=== PATIENT | female | born 1995 | race Two or more races ===

== ENCOUNTER 2024-06-09 10:09 | Inpatient (IN) | payer MEDICAID, SELFPAY ==
[2024-06-09] VITALS (31 sets, daily range): BP systolic 0–133; BP diastolic 0–88; PULSE 54–101; RESP 14–19; TEMP 36.6–36.9; O2SAT 96–100; BMI 37.9
[2024-06-09 10:59] LABS: Basophils % (Auto) 0 % (0-2.5); Eosinophils # (Auto) 0.1 Thou/mm3 (0.0-0.5); Eosinophils % (Auto) 1 % (0-10); Hematocrit 32.2 % (36.0-46.0); Hemoglobin 11.3 g/dL (12.0-16.0); Immature Granulocytes % (Auto) 1 % (0-0); Immature Granulocytes Auto 0.05 Thou/mm3 (0.00-0.00); Lymphocytes # (Auto) 1.3 Thou/mm3 (1.0-4.8); Lymphocytes % (Auto) 18 % (10-50); Mean Corpuscular HGB Conc 35.1 g/dl (31.0-37.0); Mean Corpuscular Volume 80 fL (80-100); Monocytes # (Auto) 0.4 Thou/mm3 (0.0-0.8); Monocytes % (Auto) 6 % (0-12); Neutrophils # (Auto) 5.2 Thou/mm3 (1.8-7.7); Neutrophils % (Auto) 74 % (37-80); Nucleated Red Blood Cell % 0 /100 WBC (0); Platelet Count 218 Thou/mm3 (140-440); RDW Standard Deviation 37.4 fL (36.4-46.3); Red Blood Count 4.04 Miln/mm3 (4.00-5.20)
[2024-06-09 11:32] LABS: Syphilis Nonreactive (Nonreactive)
[2024-06-09] MEDS: ceFAZolin/D5W 2 GM IV 2 GM/100 ML BAG IV (12:15)
[2024-06-09] MEDS: CITRIC ACID/SODIUM CITR 15 ML UDC (BICITRA) 30 ML PO (12:15)
[2024-06-09] MEDS: FAMOTIDINE INJ 10 MG/ML VIAL 2 ML 20 MG IV (12:15)
--- NOTE | 2024-06-09 12:47 | PD.LDHP ---
Documentation for date of: 06/09/24 OB Labor/Induct. HPI History of Present Illness : 3 Para: 2 Term pregnancies: 2 pregnancies: 0 Living children: 2 History of Abortions: Spontaneous and Elective: 0 History of sections: No History of : No Date of last menstrual period: 09/10/23 EMILY: 06/16/24 Gestational age based on last menstrual period: 41 History of present illness: 28-year-old -0-0-2 at 39 weeks, EMILY 06/16/2024 presents for scheduled repeat low-transverse section. Patient denies any contractions, leakage of fluid or vaginal bleeding and reports good movements. She has a history of 1 previous vaginal delivery followed by 1 section. The rest of her records were reviewed as scanned in History of Present Adequate Care: Yes Labs Labs: Negative: HIV, Chlamydia and Gonorrhea Review of Systems Review of Systems Systems Reviewed: All systems reviewed, normal except as documented Past Medical History Surgical History SURGICAL: Negative Section Meds Home Medications and Allergies Home Medications ?Medication ?Instructions ?Recorded ?Confirmed ?Type vitamin-ferrous sulfate 1 tab PO 1XD 06/09/24 06/09/24 History 27 mg iron-folic acid 0.8 mg tablet Allergies Allergy/AdvReac Type Severity Reaction Status Date / Time No Known Allergies Allergy Verified 06/09/24 10:58 OB Exam Physical Exam Vital signs: Temp Pulse Resp BP Pulse Ox 98.4 F 70 18 119/75 100 06/09/24 10:49 06/09/24 10:49 06/09/24 10:49 06/09/24 10:49 06/09/24 12:32 Constitutional Constitutional: no acute distress Routine HEENT Exam Head: Present normocephalic and atraumatic Eye: Present EOMI and PERRL ENT: Present mucous membranes moist Routine Neck Exam Neck: Present supple and trachea midline Routine Cardiovascular Exam Cardiovascular: Present RRR Routine Abdominal Exam Abdominal: Present soft and normoactive bowel sounds Detailed Labor and Delivery Exam Dilation (cm): 0 Baseline heart rate: 145 monitor accelerations: 15x15 monitor decelerations: None Routine Extremities Exam Extremities: Present full ROM Routine Skin Exam Skin: Present intact, dry and warm Routine Neurological Exam Neurological: Present alert, oriented X3 and CN II-XII intact Routine Psychiatric Exam Psychiatric: Present normal affect and normal thought process OB Results Labs 06/09/24 10:40 Labs: Short CBC 06/09/24 Range/Units 10:40 WBC 7.0 (3.6-11.0) Thou/mm3 Hgb 11.3 L (12.0-16.0) g/dL Hct 32.2 L (36.0-46.0) % Plt Count 218 (140-440) Thou/mm3 OB Assessment & Plan Assessment and Plan (1) delivery delivered: Status: Acute (2) Previous delivery affecting : Status: Acute Assessment and plan: Admit to inpatient status for repeat low transverse IV access, CBC, type and screen, LR at 125, RPR, COVID-19 test GBS negative Ancef 2 g prior to surgery start Linares catheter to drainage SCDs for DVT prophylaxis Anesthesia to preop for spinal anesthesia Scheduled for surgery.
--- NOTE | 2024-06-09 12:50 | ESOP_ITS ---
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 Identity was confirmed by double identifiers and she was placed on the operating table. Spinal anesthesia was administered and she was positioned in the supine position. The abdomen and perineum were prepped in the usual sterile fashion and a Linares catheter was placed to continuous drainage. Sterile drapes were applied. The incision site was tested for adequacy of anesthesia. A Pfannenstiel skin incision was made with a scalpel and carried to the subcutaneous fat up to the rectus fascia. The rectus fascia was incised on either side of the midline and the incisions were extended bilaterally. The fascia was gently dissected off the ventral surface of the rectus muscle both superiorly and inferiorly. The rectus bellies were gently in the midline and the peritoneum was identified and entered bluntly using the surgeon's finger. The peritoneal opening was now stretched to create an adequate opening for access to the uterus. Julio O-ring retractor was placed for adequate visualization. The anterior surface of the uterus was palpated. About 2 cm above the previous hysterotomy scar multiple areas of vascularity that were consistent in appearance with placental vessels were noted. The anterior surface of the uterus was palpated and the placenta was noted to be anterior. Also the right sub-Farnell/cornual portion of the uterus was connected to a dense band of adhesion that connected the uterus to the anterior abdominal wall. The bladder reflection was identified and a Luis M Chen low transverse uterine incision was made in the lower uterine segment taking care to avoid the bladder. Uterine entry was accomplished bluntly and the opening was stretched to create adequate room. The amniotic membranes were now ruptured and clear amniotic fluid was released. The fetus was noted to be in the vertex position. The head was gently elevated out of the maternal pelvis and the rest of the shoulders and body were delivered by gentle fundal pressure. Umbilical cord was doubly clamped, divided and the was handed over to the waiting team. Cord gas samples were obtained. The placenta was delivered by gentle traction on the umbilical cord. The interior of the uterus was now thoroughly cleaned of all blood and debris and membranes. The hysterotomy angles were grasped by a pair of Allis clamps and the hysterotomy was closed using 1 Monocryl suture in 2 layers. The first layer was used to approximate the muscle in a running locked fashion, the second layer was used to approximate the thickness of the myometrium and uterine serosa in an imbricated manner. Attention was now turned to the previously noted vessels on the anterior uterine surface. There were palpated and noted to be Windows through and through into the uterine cavity. All these openings were separately closed using 1 Monocryl using a combination of figure of 8 as well as running locked stitches. Attention was next turned to the previously noted band of ideation. Bowel structures were carefully protected and the band was double clamped, divided and suture-ligated using 0 Vicryl. Once the repair was completed the hysterotomy was inspected and noted to be adequately hemostatic. Surgicel snow was placed on all the previous repair sites for additional hemostasis. The hysterotomy was once again inspected and hemostasis was noted to be satisfactory. The Julio retractor was now removed. The peritoneal edges were re approximated. The rectus muscles were re approximated. The rectus fascia was now repaired using 0 Vicryl suture in a running fashion. The subcutaneous layer was now copiously irrigated using warm normal saline. All bleeding points were cauterized using the Bovie. The subcutaneous fat was closed using 3-0 Vicryl. The skin was closed using 4-0 Monocryl in a subcuticular fashion. The skin was cleaned and a sterile dressing was applied. The patient was now undraped, the abdomen and back were thoroughly cleaned and she was not transferred to the recovery room in a stable and awake condition. The patient tolerated the entire procedure well. No complications were encountered. All instrument, sponge and lap counts were correct x2. Estimated blood loss (ml): 600 Complications: none Surgical staff Operation Date: 06/09/24 12:45 Case Staff POST ANESTHESIA ROOM NURSE: Cristofer Delgado RNstallion manager: MACHO Pozo Diagnosis Discharge Diagnosis (1) Previous delivery affecting : Status: Acute (2) delivery delivered: Status: Acute Problem List Completed Was Problem List Reviewed/Reconciled?: Yes
--- NOTE | 2024-06-09 13:40 | PD.LDDELS ---
Data ([facility]) Data Hx Section: No : 3 Term: 2 : 0 : 0 Delivery Data ([facility]) Delivery Data Delivered by: Angelika Barboza
[2024-06-09] MEDS: OXYTOCIN in NS 20 units 20 UNIT/1,000 ML BAG 125 UNIT IV ×2 (13:45→21:12)
[2024-06-09] MEDS: KETOROLAC INJ 30 MG/ML VIAL IVP (19:51)
[2024-06-10 03:50] VITALS: BP 94/60; PULSE 51; RESP 16; TEMP 36.6; O2SAT 97
[2024-06-10 05:46] LABS: Basophils % (Auto) 0 % (0-2.5); Eosinophils % (Auto) 0 % (0-10); Hematocrit 26.6 % (36.0-46.0); Hemoglobin 9.1 g/dL (12.0-16.0); Immature Granulocytes % (Auto) 1 % (0-0); Immature Granulocytes Auto 0.07 Thou/mm3 (0.00-0.00); Lymphocytes # (Auto) 1.7 Thou/mm3 (1.0-4.8); Lymphocytes % (Auto) 17 % (10-50); Mean Corpuscular HGB Conc 34.2 g/dl (31.0-37.0); Mean Corpuscular Hemoglobin 28.7 pg (25.0-35.0); Mean Corpuscular Volume 84 fL (80-100); Monocytes % (Auto) 10 % (0-12); Neutrophils # (Auto) 7.3 Thou/mm3 (1.8-7.7); Neutrophils % (Auto) 72 % (37-80); Nucleated Red Blood Cell % 0 /100 WBC (0); Platelet Count 191 Thou/mm3 (140-440); RDW Standard Deviation 39.8 fL (36.4-46.3); Red Blood Count 3.17 Miln/mm3 (4.00-5.20); White Blood Count 10.2 Thou/mm3 (3.6-11.0)
[2024-06-10 07:40] VITALS: BP 97/64; PULSE 61; RESP 16; TEMP 37.4; O2SAT 96
--- NOTE | 2024-06-10 08:02 | ESPR_ITS ---
Subjective Subjective Interval history: Delivery type: Patient doing well this morning. No acute complaints. Ambulating, tolerating p.o. and voiding without difficulty. HTN/Pre-Eclampsia screen: No chest pain, shortness of breath, headache, visual changes, epigastric or right upper quadrant pain. Breast-feeding, lochia diminishing. Bowel: Flatus+/ BM+ Exam Vital Signs Temp Pulse Resp BP Pulse Ox O2 Del Method 97.8 F 51 L 16 94/60 97 Room Air 06/10/24 03:50 06/10/24 03:50 06/10/24 03:50 06/10/24 03:50 06/10/24 03:50 06/10/24 03:50 Constitutional Constitutional: no acute distress Routine HEENT Exam Head: Present normocephalic and atraumatic Eye: Present EOMI and PERRL ENT: Present mucous membranes moist Routine Neck Exam Neck: Present supple and trachea midline Routine Respiratory Exam Respiratory: Present chest non-tender, lungs clear, normal breath sounds and no resp distress Routine Cardiovascular Exam Cardiovascular: Present RRR Routine Abdominal Exam Abdominal: Present soft and normoactive bowel sounds Routine Extremities Exam Extremities: Present full ROM Routine Skin Exam Skin: Present intact, dry and warm Routine Neurological Exam Neurological: Present alert, oriented X3 and CN II-XII intact Routine Psychiatric Exam Psychiatric: Present normal affect and normal thought process Objective Labs 06/10/24 04:47 Labs: Laboratory Results - last 24 hr 06/09/24 06/10/24 10:40 04:47 WBC 7.0 10.2 D RBC 4.04 3.17 L Hgb 11.3 L 9.1 L D Hct 32.2 L 26.6 L MCV 80 84 MCH 28.0 28.7 MCHC 35.1 34.2 RDW Std Deviation 37.4 39.8 Plt Count 218 191 Neut % (Auto) 74 72 Lymph % (Auto) 18 17 [place] % (Auto) 6 10 Eos % (Auto) 1 0 Baso % (Auto) 0 0 Neut # (Auto) 5.2 7.3 Lymph # (Auto) 1.3 1.7 [place] # (Auto) 0.4 1.0 H Eos # (Auto) 0.1 0.0 Baso # (Auto) 0.0 0.0 Immature Gran # (Auto) 0.05 H 0.07 H Absolute Nucleated RBC 0.00 0.00 Immature Gran % 1 H 1 H Nucleated RBC % 0 0 Syphilis Serology Nonreactive Blood Type B Positive Antibody Screen NEGATIVE Blood Bank Wristband ID Yes Assessment & Plan Problem List (1) Previous delivery affecting : Status: Acute (2) delivery delivered: Status: Acute Assessment and plan: 1. Continue routine /post-op care 2. Labs reviewed, cbc appropriate 3. Remove dressing/Linares 4. Encourage to ambulate, shower 5. Encourage PO intake, breast feeding Time Spent With Patient Time: Total time spent is greater than 50% in coordination of care (as documented) at patient's floor/unit and/or counseling patient:
--- NOTE | 2024-06-10 08:03 | OBDSUM_ITS ---
Data ([facility]) Data Hx Section: No : 3 Para: 2 Term: 2 : 0 : 0 Delivery Data ([facility]) Labor Data ROM Date: 06/09/24 ROM Time: 13:04 Rupture Type: AROM Amniotic Fluid: Clear Delivery Data Labor Onset Stage 1 Date: 06/09/24 Labor Onset Stage 1 Time: 13:04 Labor Onset Stage 2 Date: 06/09/24 Labor Onset Stage 2 Time: 13:04 Delivery Date: 06/09/24 Delivery Time: 13:04 Placenta Delivery Date: 06/09/24 Placenta Delivery Time: 13:06 Delivered by: Holger Duff Delivery nurse: Ita Talamantes Other staff at delivery: Nursery Nurse Other staff at delivery: Bev Garcia Delivery Method Delivery: Delivery Type: Repeat Presentation: Vertex Anesthesia Type Primary Anesthesia: Spinal Delivery Room Medications Other Intrapartum Medications: Yes Placenta Placenta Delivery: Manual Cord Sample: Cord Blood Obtained Umbilical Cord Umbilical Vessels: 3 Nuchal Cord: None Body Cord: None Data ([facility]) [place] Data Infant Gender: Female Infant Weight Grams: 2975 1 Minute Total: 8 5 Minute Total: 8
[2024-06-10] MEDS: DOCUSATE SOD 100 MG CAPSULE PO (08:22)
[2024-06-10] MEDS: RINGERS LACTATED 1000 ML 1,000 ML 125 ML IV (08:23)
[2024-06-10 08:49] VITALS: BP 103/68
[2024-06-10 11:55] VITALS: BP 105/66; PULSE 58; RESP 16; TEMP 36.8; O2SAT 100
[2024-06-10 19:25] VITALS: BP 111/77; PULSE 88; RESP 16; TEMP 36.9; O2SAT 98
[2024-06-11 04:00] VITALS: BP 114/73; PULSE 80; RESP 16; TEMP 37.1; O2SAT 98
[2024-06-11 07:45] VITALS: BP 115/72; PULSE 80; RESP 16; TEMP 37; O2SAT 97
--- NOTE | 2024-06-11 07:58 | PD.LDPPPRG ---
Subjective Subjective Interval history: Delivery type: Patient doing well this morning. No acute complaints. Ambulating, tolerating p.o. and voiding without difficulty. HTN/Pre-Eclampsia screen: No chest pain, shortness of breath, headache, visual changes, epigastric or right upper quadrant pain. Breast-feeding, lochia diminishing. Bowel: Flatus Exam Vital Signs Temp Pulse Resp BP Pulse Ox O2 Del Method 98.7 F 80 16 114/73 98 Room Air 06/11/24 04:00 06/11/24 04:00 06/11/24 04:00 06/11/24 04:00 06/11/24 04:00 06/11/24 04:00 Constitutional Constitutional: no acute distress Routine HEENT Exam Head: Present normocephalic and atraumatic Eye: Present EOMI and PERRL ENT: Present mucous membranes moist Routine Neck Exam Neck: Present supple and trachea midline Routine Respiratory Exam Respiratory: Present chest non-tender, lungs clear, normal breath sounds and no resp distress Routine Cardiovascular Exam Cardiovascular: Present RRR Routine Abdominal Exam Abdominal: Present soft and normoactive bowel sounds Routine Extremities Exam Extremities: Present full ROM Routine Skin Exam Skin: Present intact, dry and warm Routine Neurological Exam Neurological: Present alert, oriented X3 and CN II-XII intact Routine Psychiatric Exam Psychiatric: Present normal affect and normal thought process Objective Labs 06/10/24 04:47 Assessment & Plan Problem List (1) Previous delivery affecting : Status: Acute Assessment and plan: 1. Continue routine /post-op care 2. Labs reviewed, cbc appropriate 3. Remove dressing/Linares 4. Encourage to ambulate, shower 5. Encourage PO intake, breast feeding (2) delivery delivered: Status: Acute Time Spent With Patient Time: Total time spent is greater than 50% in coordination of care (as documented) at patient's floor/unit and/or counseling patient:
[2024-06-11] MEDS: DOCUSATE SOD 100 MG CAPSULE PO (08:50)
--- NOTE | 2024-06-11 08:55 | PD.LDPPPRG ---
Subjective Subjective Interval history: Delivery type: Patient doing well this morning. No acute complaints. Ambulating, tolerating p.o. and voiding without difficulty. HTN/Pre-Eclampsia screen: No chest pain, shortness of breath, headache, visual changes, epigastric or right upper quadrant pain. Breast-feeding, lochia diminishing. Bowel: Flatus+ Exam Vital Signs Temp Pulse Resp BP Pulse Ox O2 Del Method 98.6 F 80 16 115/72 97 Room Air 06/11/24 07:45 06/11/24 07:45 06/11/24 07:45 06/11/24 07:45 06/11/24 07:45 06/11/24 07:45 Constitutional Constitutional: no acute distress Routine HEENT Exam Head: Present normocephalic and atraumatic Eye: Present EOMI and PERRL ENT: Present mucous membranes moist Routine Neck Exam Neck: Present supple and trachea midline Routine Respiratory Exam Respiratory: Present chest non-tender, lungs clear, normal breath sounds and no resp distress Routine Cardiovascular Exam Cardiovascular: Present RRR Routine Abdominal Exam Abdominal: Present soft and normoactive bowel sounds Routine Extremities Exam Extremities: Present full ROM Routine Skin Exam Skin: Present intact, dry and warm Routine Neurological Exam Neurological: Present alert, oriented X3 and CN II-XII intact Routine Psychiatric Exam Psychiatric: Present normal affect and normal thought process Objective Labs 06/10/24 04:47 Assessment & Plan Problem List (1) Previous delivery affecting : Status: Acute (2) delivery delivered: Status: Acute Assessment and plan: PPD/POD#2 1. Continue routine care 2. Transition to PO meds. 3. Encourage to ambulate/ breast-feed 4. Anticipate discharge home today. Time Spent With Patient Time: Total time spent is greater than 50% in coordination of care (as documented) at patient's floor/unit and/or counseling patient:
--- NOTE | 2024-06-11 08:55 | ESDS_ITS ---
DS: Providers Provider Date of admission: 06/09/24 10:09 Primary care physician: Physician No Primary/Family Admitting Provider: Iram Reagan CNM Attending Provider on Admission: Holger Duff MD Consults: 06/09/24 13:54 Referral Routine Comment: Attending Provider on DC: Holger Duff MD Discharging Provider: Holger Duff MD DS: Diagnosis Discharge Diagnosis (1) Previous delivery affecting : Status: Acute (2) delivery delivered: Status: Acute Problem List Completed Was Problem List Reviewed/Reconciled?: Yes Summary/Hosp Course Brief History: 28-year-old -0-0-2 at 39 weeks, EMILY 06/16/2024 presents for scheduled repeat low-transverse section. Patient denies any contractions, leakage of fluid or vaginal bleeding and reports good movements. She has a history of 1 previous vaginal delivery followed by 1 section. The rest of her records were reviewed as scanned in Peripartum Data Procedures: Procedures Operation Date: 06/09/24 12:45 Actual Procedure Side Surgeon p in OB Holger Duff MD Time Spent with Patient Time attestation: Total time spent providing and/or coordinating discharge services: Exam Vital Signs Temp Pulse Resp BP Pulse Ox O2 Del Method 98.6 F 80 16 115/72 97 Room Air 06/11/24 07:45 06/11/24 07:45 06/11/24 07:45 06/11/24 07:45 06/11/24 07:45 06/11/24 07:45 Discharge Plan Plan Patient Disposition: HOME (Self Care) Patient condition on transfer: Stable Prescriptions/Referrals Prescriptions/Med Rec: New hydrocodone-acetaminophen 5-325 mg Tablet 1 tab PO Q6HR MDD 4 PRN (Reason: Patient rated pain 9 to 10) 5 Days Qty: 20 0RF docusate sodium 100 mg Capsule 100 mg PO QDAY 30 Days Qty: 30 0RF ibuprofen 400 mg Tablet 800 mg PO Q8HR PRN (Reason: Pain Scale 4-6 (Moderate) 10 Days Qty: 30 0RF Continued vit-ferrous sulfat-FA 27 mg iron- 0.8 mg Tablet 1 tab PO 1XD Referrals: Holger Duff MD [Physician] - No Primary/Family,Physician [Primary Care Provider] - Patient/Caregiver Discharge Instructions Meds to Beds: Yes Discharge Activity: activity as tolerated Education Materials: , C Section Dc Print Language: Macedonian Stand Alone Forms: Pina Award Info., Patient Portal Info Letter, DC from Surgery Discharge Order Discharge Orders: Discharge (Routine); Ordered 06/11/24 Ordered By: Holger Duff Planned Discharge Date 06/11/24
== END 2024-06-11 10:40 | disposition home or self-care (01) | DRG 540 ==
LOC: S4SX 10:10 → S4NX 12:57
PROVIDERS: Admitting Provider Advanced Practice Midwife; Visit Provider Obstetrics & Gynecology
PROC: 10D00Z1 Extraction of Products of Conception, Low, Open Approach (ICD-10-PCS; CPT 59514; principal; 2024-06-09 12:30)
DX: O34.211 Maternal care for low transverse scar from previous cesarean delivery (principal); Z37.0 Single live birth; Z3A.39 39 weeks gestation of pregnancy
CPT/HCPCS: 36415; 59409; 85025; 86780; 86850; 86900; 86901; 94762; A4649; J0689; J1100; J1885; J2274; J2371; J2405; J2590; J3490; J7120; A9270; J0690; J2270